=== PATIENT | male | born 1945 | race Hispanic/Latino ===

== ENCOUNTER 2023-06-22 05:00 | Observation (INO) | payer OTHER ==
[2023-06-17 12:31] LABS: BASOPHILS # (AUTO) 0.03 K/uL (0.00-0.20); BASOPHILS % (AUTO) 0.4 % (0.0-5.0); EOSINOPHILS # (AUTO) 0.31 K/uL (0.00-0.70); EOSINOPHILS % (AUTO) 4.1 % (0.0-8.0); HEMATOCRIT 47.3 % (42-54); IMMATURE GRANULOCYTE ABSOLUTE 0.02 K/uL (0-1); LYMPHOCYTES # (AUTO) 2.4 K/uL (1.0-4.8); LYMPHOCYTES % (AUTO) 31.4 % (21.0-51.0); MEAN CORPUSCULAR HEMOGLOBIN 29.2 pg (27.0-33.0); MEAN CORPUSCULAR HGB CONC 34.2 g/dL (32.0-36.0); MEAN CORPUSCULAR VOLUME 85.4 fL (79-99); MONOCYTES # (AUTO) 0.6 K/uL (0.1-1.0); MONOCYTES % (AUTO) 8.3 % (3.0-13.0); NEUTROPHILS # (AUTO) 4.2 K/uL (1.8-7.7); NEUTROPHILS % (AUTO) 55.5 % (40.0-77.0); PLATELET COUNT (AUTO) 137 K/uL (130-400); RED BLOOD CELL COUNT(AUTO) 5.54 MIL/uL (4.50-6.20); RED CELL DISTRIBUTION WIDTH 14.6 % (11.0-15.5); WHITE BLOOD COUNT (AUTO) 7.6 K/uL (4.8-10.8)
[2023-06-17 12:38] VITALS: BP 152/83; PULSE 86; RESP 18
[2023-06-17 12:46] LABS: INR 1.01 (0.85-1.15); PROTHROMBIN TIME 11.9 SEC (9.6-11.6)
[2023-06-17 12:48] LABS: PARTIAL THROMBOPLASTIN TIME 29.7 SEC (26.3-35.5)
[2023-06-17 13:03] LABS: ALBUMIN 3.8 g/dL (3.5-5.0); BILIRUBIN,TOTAL 0.8 mg/dL (0.2-1.0); CREATININE 1.1 mg/dL (0.5-1.3); POTASSIUM 4.4 mmol/L (3.5-5.1)
[~2023-06-22] VITALS: Ht 172.7 cm; Wt 110.8 kg
[2023-06-22] VITALS (27 sets, daily range): BP systolic 94–140; BP diastolic 58–75; PULSE 12–88; RESP 11–20; O2SAT 94
[~2023-06-22 05:00] MED LIST: AMLO-258 PO; ATOR40TA71 PO; DAPA10TA PO; INSU100V37 SQ; LOSA1TAB42 PO; METF-446 PO; METO-408 PO; NITR0.4T50 SL; SITA100T12 PO
[2023-06-22] MEDS: CEFAZOLIN SODIUM 2 GM VIAL ONE ×2 (05:23→17:08)
[2023-06-22] MEDS: 0.9%NACL 1000ML 1,000 ML IV ONE (05:26)
[2023-06-22] MEDS: FAMOTIDINE 20MG VIAL IV ONE (07:22)
[2023-06-22] MEDS: TRANEXAMIC ACID 1000MG/10ML ONE ×2 (07:22→08:30)
[2023-06-22] MEDS ORDERED: PROPOFOL 10 MG/ML 20ML VIAL IV ONE (07:26)
[2023-06-22] MEDS ORDERED: FENTANYL CITRATE PF 50 MCG/1 ML 2ML VIAL ONE (07:27)
[2023-06-22] MEDS: PROPOFOL 1000 MG/100 ML 100 ML IV ONE (07:56)
[2023-06-22] MEDS ORDERED: EPHEDRINE SULFATE 50 MG/ML AMPULE ONE (08:24)
[2023-06-22] MEDS ORDERED: ONDANSETRON 4MG INJ ONE (08:31)
[2023-06-22] MEDS ORDERED: DEXAMETHASONE SOD PHOSPHATE 10MG/ML 1ML VIAL ONE (08:31)
[2023-06-22] MEDS: 0.9%NACL 48.45 ML, ROPIVACAINE 0.5% 49.25ML, EPINEPH 0.5MG KETOROLAC 30MG,CLONIDINE 80MCG IV PRN (09:36)
[2023-06-22] MEDS: TRAMADOL HCL 50 MG TABLET ONE (13:46)
[2023-06-22] MEDS: CEFAZOLIN SODIUM 1 GM VIAL ONE (17:08)
[2023-06-22] MEDS ORDERED: ACETAMINOPHEN 325 MG TAB PO SCH (18:00)
[2023-06-22] MEDS ORDERED: LACTULOSE 20 GM/30 ML UDCUP PO PRN (18:00)
[2023-06-22] MEDS ORDERED: ONDANSETRON 4MG INJ IVP PRN (18:00)
[2023-06-22] MEDS ORDERED: DIPHENOXYLATE HCL/ATROPINE 2.5/0.025 MG TAB PO PRN (18:00)
[2023-06-22] MEDS ORDERED: TRAMADOL HCL 50 MG TABLET PO PRN (18:00)
[2023-06-22] MEDS ORDERED: DiphenhydrAMINE HCL 50 MG/ML VIAL IM PRN (18:00)
[2023-06-22] MEDS ORDERED: DIPHENHYDRAMINE HCL 25 MG CAPSULE PO SCH (18:00)
[2023-06-22] MEDS: 0.9%NACL 1000ML 1,000 ML IV SCH (18:00)
[2023-06-22] MEDS ORDERED: DIPHENHYDRAMINE HCL 25 MG CAPSULE PO PRN (18:00)
[2023-06-22] MEDS ORDERED: ACETAMINOPHEN 325 MG TAB PO PRN ×3 (18:00)
[2023-06-22] MEDS ORDERED: MAG/ALUM/SIMETH 30 ML UDCUP PO PRN (18:00)
[2023-06-22] MEDS ORDERED: BENZOCAINE/MENTH/CETYLPYRD CL 1 EACH LOZENGE MM PRN (18:00)
[2023-06-22] MEDS ORDERED: NITROGLYCERIN 0.4 MG SL TAB SL PRN (19:00)
[2023-06-22] MEDS: HYDROMORPH /0.9% NACL/PF PCA 50 ML IV PRN (20:03)
[2023-06-22] MEDS: METFORMIN HCL 500 MG TABLET PO SCH (21:12)
[2023-06-22] MEDS: INSULIN GLARGINE 100 UNITS/ML 10 ML VIAL SQ SCH (21:18)
[2023-06-23] MEDS: CEFAZOLIN SODIUM 1 GM VIAL IVPB SCH (00:59)
[2023-06-23] MEDS ORDERED: GLUCAGON 1MG KIT 1 MG ML IM PRN (02:30)
[2023-06-23] MEDS ORDERED: KCL 20 MEQ ERTAB PO PRN (02:30)
[2023-06-23] MEDS ORDERED: DEXTROSE 50%-WATER 50 ML DISP.SYRIN IV PRN (02:30)
[2023-06-23] MEDS ORDERED: POTASSIUM CHLORIDE 10% ELIXIR 20 MEQ/15 ML UDCUP PO PRN (02:30)
[2023-06-23] MEDS ORDERED: POTASSIUM CHLORIDE 20MEQ/100ML 100 ML IV PRN (02:30)
[2023-06-23] MEDS ORDERED: MAGNESIUM 2GM PREMIX 50ML 50 ML IV PRN (02:30)
[2023-06-23 03:54] LABS: BASOPHILS # (AUTO) 0.01 K/uL (0.00-0.20); BASOPHILS % (AUTO) 0.1 % (0.0-5.0); EOSINOPHILS # (AUTO) 0.01 K/uL (0.00-0.70); EOSINOPHILS % (AUTO) 0.1 % (0.0-8.0); HEMATOCRIT 36.4 % (42-54); IMMATURE GRANULOCYTE ABSOLUTE 0.05 K/uL (0-1); LYMPHOCYTES # (AUTO) 1.5 K/uL (1.0-4.8); LYMPHOCYTES % (AUTO) 14.2 % (21.0-51.0); MEAN CORPUSCULAR HEMOGLOBIN 29.1 pg (27.0-33.0); MEAN CORPUSCULAR VOLUME 88.3 fL (79-99); MONOCYTES # (AUTO) 0.8 K/uL (0.1-1.0); MONOCYTES % (AUTO) 7.1 % (3.0-13.0); NEUTROPHILS # (AUTO) 8.4 K/uL (1.8-7.7); PLATELET COUNT (AUTO) 98 K/uL (130-400); RED BLOOD CELL COUNT(AUTO) 4.12 MIL/uL (4.50-6.20); RED CELL DISTRIBUTION WIDTH 14.4 % (11.0-15.5); WHITE BLOOD COUNT (AUTO) 10.8 K/uL (4.8-10.8)
[2023-06-23 04:09] LABS: ALBUMIN 2.7 g/dL (3.5-5.0); BILIRUBIN,DIRECT 0.2 mg/dL (0.0-0.3); BILIRUBIN,TOTAL 0.4 mg/dL (0.2-1.0); CREATININE 1.2 mg/dL (0.5-1.3); MAGNESIUM 1.9 mg/dL (1.80-2.40); POTASSIUM 4.2 mmol/L (3.5-5.1); TOTAL PROTEIN, SERUM 5.7 g/dL (6.0-8.3)
[2023-06-23 04:15] VITALS: BP 92/57; PULSE 69; RESP 20
[2023-06-23 04:15] LABS: HEMOGLOBIN A1C 8.1 % (4.0-6.0)
[2023-06-23] MEDS: INSULIN HUMULIN R 100 UNIT/ML 3ML SQ SCH (07:30)
[2023-06-23 08:17] VITALS: BP 109/69; PULSE 75; RESP 16
[2023-06-23] MEDS: (Dapagliflozin Propanediol (Farxiga) 10 MG) PO SCH (08:23)
[2023-06-23] MEDS: (Sitagliptin Phosphate (Januvia) 100 MG) PO SCH (08:24)
[2023-06-23] MEDS: ATORVASTATIN 40 MG TABLET PO SCH (08:24)
[2023-06-23] MEDS: HYDROCHLOROTHIAZIDE PO SCH (08:25)
[2023-06-23] MEDS: AMLODIPINE 5 MG TAB PO SCH (08:25)
[2023-06-23] MEDS: [UNRECOGNIZED DRUG - OTHER] PO SCH (08:25)
[2023-06-23] MEDS: LOSARTAN PO SCH (08:25)
[2023-06-23] MEDS: RIVAROXABAN 10 MG TABLET PO SCH (09:00)
[2023-06-23] MEDS ORDERED: METOPROLOL SUCCINATE 25 MG TAB.SR.24H PO SCH (09:00)
[2023-06-23] MEDS: FAMOTIDINE 20MG TAB PO SCH (10:46)
[2023-06-23] MEDS: TRAMADOL HCL 50 MG TABLET PO PRN (10:46)
[2023-06-23 12:01] VITALS: BP 117/64; PULSE 77; RESP 16
[2023-06-23 17:15] LABS: HEPATITIS A IGM ANTIBODY Non-Reactive (Nonreactive); HEPATITIS B CORE IGM ANTIBODY Non-Reactive (Negative); HEPATITIS B SURFACE ANTIGEN Non-Reactive (Nonreactive); HEPATITIS C ANTIBODY Non-Reactive (Nonreactive)
== END 2023-06-23 16:25 | disposition home or self-care (01) ==
LOC: DAH 05:00 → DAHIP 05:01 → DAH 05:01 → 4BH 17:36
PROVIDERS: ADMIT Orthopaedic Surgery; ATTEND Orthopaedic Surgery
DX: M17.12 Unilateral primary osteoarthritis, left knee (principal); I10 Essential (primary) hypertension; E78.5 Hyperlipidemia, unspecified; E66.01 Morbid (severe) obesity due to excess calories; E87.1 Hypo-osmolality and hyponatremia; I25.2 Old myocardial infarction; I25.10 Atherosclerotic heart disease of native coronary artery without angina pectoris; E11.42 Type 2 diabetes mellitus with diabetic polyneuropathy; E11.65 Type 2 diabetes mellitus with hyperglycemia; Z95.5 Presence of coronary angioplasty implant and graft; Z86.2 Personal history of diseases of the blood and blood-forming organs and certain disorders involving the immune mechanism; Z85.05 Personal history of malignant neoplasm of liver; Z68.37 Body mass index [BMI] 37.0-37.9, adult; Z79.899 Other long term (current) drug therapy
CPT/HCPCS: 80053; 85025 ×2; 85610; 85730; 36415 ×2; 87641; 27447; 96372 ×2; 96365; 96366 ×2; 82948 ×5; 97012; 97116 ×3; 96368; 83036; 82977; 80076; 83735; 80061; 80048; 80074; 97530 ×3; A6260; G0378 ×20; A4510; A4663; J7120; A4215 ×2; A4649 ×4; J3490 ×4; J3010; J0690 ×4; J1100; J7030 ×2; J2704 ×2; J2405; A6223; A4930; C1763 ×2; C1776; A5120; A4223; A4222; A4221; A6450